=== PATIENT | female | born 1970 | race Asian ===

== ENCOUNTER → 2021-11-03 | Day surgery (SDC) | payer BC | END | disposition home or self-care (01) | LOC: FMAMMOTONE 09:02 | PROVIDERS: ATTEND Internal Medicine | PROC: 0HBT3ZX Excision of Right Breast, Percutaneous Approach, Diagnostic (ICD-10-PCS; principal; 2021-11-03) | DX: N60.21 Fibroadenosis of right breast (principal); N60.31 Fibrosclerosis of right breast; N60.81 Other benign mammary dysplasias of right breast; N60.41 Mammary duct ectasia of right breast; N64.89 Other specified disorders of breast; R92.0 Mammographic microcalcification found on diagnostic imaging of breast | CPT/HCPCS: 19081; 76098-TC-FY; 87899; 88305-TC; A4648 ==

== ENCOUNTER → 2022-06-07 | Day surgery (SDC) | payer BC | END | disposition home or self-care (01) | LOC: JASU-SURG 12:43 | PROVIDERS: ATTEND Surgery | PROC: 0H9T3ZX Drainage of Right Breast, Percutaneous Approach, Diagnostic (ICD-10-PCS; principal; 2022-06-07) | DX: N64.9 Disorder of breast, unspecified (principal); Z53.8 Procedure and treatment not carried out for other reasons | CPT/HCPCS: 19083; 76642-TC-RT ==